=== PATIENT | female | born 1935 | race Caucasian/White ===

== ENCOUNTER → 2016-07-24 | Outpatient (REF) | payer MEDICARE | LOC: M LAB REF 13:59 | PROVIDERS: ATTEND Family Medicine | DX: R19.7 Diarrhea, unspecified (principal) ==

== ENCOUNTER → 2016-10-21 | Outpatient (CLI) | payer MEDICARE ==
--- NOTE | 2016-10-21 11:52 | REP ---
DIGITAL DIAGNOSTIC UNILATERAL LEFT BREAST MAMMOGRAPHY WITH CAD: HISTORY: Screening mammography September 18, 2016 was BIRADS category 4 for microcalcifications in the left breast. FINDINGS: Magnified focal spot compression CC, MLO and true MLO views of left breast confirm the presence of a grouping of microcalcifications and some coarse benign type calcifications in the tight grouping in the upper outer quadrant of the left breast. These are somewhat more numerous than on a 2013 prior study. There are some calcifications from this grouping which are visible in 2011 and 2010. This is a different grouping of calcifications than the one which was biopsied in the left breast in 2009. Heterogeneously dense breast parenchyma persist. IMPRESSION: There are coarse benign appearing calcifications in the upper outer quadrant left breast. Histologic sampling is not felt to be warranted. BIRADS category II benign left breast mammogram. Annual screening mammography recommended BI-RADS/ACR category 2 mammogram. Benign finding(s). Routine annual screening mammography (for women over age 40). This mammogram was interpreted with the aid of an FDA-approved computer-aided detection system. The patient states she/he had a clinical breast exam in May 2016. Patient letter M1. Signed by Tad Doll MD 10/21/2016 02:28 P
== END ==
LOC: M RAD 10:24
PROVIDERS: ATTEND Surgery
DX: N63 Unspecified lump in breast (principal)

== ENCOUNTER 2017-02-18 01:50 | Emergency (ER) | payer MEDICARE ==
[~2017-02-18] VITALS: Ht 157.5 cm; Wt 46.8 kg
[2017-02-18] MEDS ORDERED: BACL1TAB8 PO (02:05)
[2017-02-18] MEDS ORDERED: SERT-138 PO (02:05)
[2017-02-18] MEDS ORDERED: VITA100067 PO (02:05)
[2017-02-18] MEDS ORDERED: SYNT25TA PO (02:05)
[2017-02-18] MEDS ORDERED: ARIC1TAB2 PO (02:05)
[2017-02-18] MEDS ORDERED: PRED20TA PO (04:08)
[2017-02-18] MEDS ORDERED: ZITHTAB PO (04:08)
[2017-02-18 04:37] VITALS: BP 130/70
--- NOTE | 2017-02-18 08:15 | REP ---
Clinical: Cough . Comparison: 02/17/2010 . Technique: PA and lateral. Findings: The mediastinum and cardiac silhouette are normal. The lung biggs are clear and without acute consolidation, effusion, or pneumothorax. The skeletal structures are intact and normal. Impression: 1. No acute cardiopulmonary process. Signed by Jean Schwartz MD 02/18/2017 08:06 A
== END 2017-02-18 04:40 | disposition home or self-care (01) ==
LOC: M ED 01:50
DX: J41.0 Simple chronic bronchitis (principal); F03.90 Unspecified dementia, unspecified severity, without behavioral disturbance, psychotic disturbance, mood disturbance, and anxiety; Z79.899 Other long term (current) drug therapy

== ENCOUNTER → 2017-06-21 | Outpatient (CLI) | payer MEDICARE | LOC: M WUC 16:29 | DX: S62.662A Nondisplaced fracture of distal phalanx of right middle finger, initial encounter for closed fracture (principal); M19.041 Primary osteoarthritis, right hand; X58.XXXA Exposure to other specified factors, initial encounter; Y93.9 Activity, unspecified | CPT/HCPCS: 73140 ==

== ENCOUNTER 2017-10-26 09:59 | Inpatient (IN) | payer MEDICARE ==
[2017-10-26] MEDS: ENOXAPARIN 40 MG/0.4 ML SYRINGE (J1650) SC (09:00)
[2017-10-26 10:26] LABS: BEDSIDE GLUCOSE 92 MG/DL (83-110)
[2017-10-26 10:53] LABS: BASO % 0.7 % (0.0-1.0); EOS # 0.1 10^3/uL (0.0-0.50); EOS % 2.5 % (0.0-3.0); HEMATOCRIT 33.9 % (36.0-47.0); HEMOGLOBIN 11.2 g/dl (12.0-15.5); IMMATURE GRANULOCYTE % 0.2 % (0-3.0); LYMPH # 1.4 10^3/uL (1.5-4.5); LYMPH % 24.7 % (24.0-44.0); MEAN CORPUSCULAR HEMOGLOBIN 32.2 pg (27.0-33.0); MEAN CORPUSCULAR VOLUME 97.4 fl (80.0-96.0); MONO # 0.5 10^3/uL (0.0-0.8); MONO % 8.7 % (0.0-5.0); NEUTROPHILS # 3.5 10^3/uL (1.8-7.7); NEUTROPHILS % 63.2 % (36.0-66.0); PLATELET COUNT, AUTOMATED 205 10^3/uL (150-450); RED BLOOD COUNT 3.48 10^6/uL (4.00-5.40); RED CELL DISTRIBUTION WIDTH 13.2 % (11.5-14.5); WHITE BLOOD COUNT 5.5 10^3/uL (4.0-10.0)
[2017-10-26 11:08] LABS: INR 1.05; PROTHROMBIN TIME 13.9 SECONDS (12.1-14.4)
[2017-10-26 11:20] LABS: CPK CREATINE PHOSPHOKINASE 67 U/L (26-192); TROPONIN I < 0.02 NG/ML (< 0.10)
[2017-10-26 11:21] LABS: CK-MB VALUE MASS < 1.0 NG/ML (<3.6); MB/CK RELATIVE INDEX 1.49 (< OR =4)
[2017-10-26 11:26] LABS: ANION GAP 6 MEQ/L (8-16); BLOOD UREA NITROGEN 18 MG/DL (7-18); CALCIUM LEVEL 8.2 MG/DL (8.8-10.2); CARBON DIOXIDE LEVEL 27 MEQ/L (21-32); CHLORIDE LEVEL 112 MEQ/L (98-107); GLOMERULAR FILTRATION RATE > 60.0 (>32); GLUCOSE, FASTING 96 MG/DL (70-100); MAGNESIUM LEVEL 2.2 MG/DL (1.8-2.4); POTASSIUM SERUM 3.9 MEQ/L (3.5-5.1); SODIUM LEVEL 145 MEQ/L (136-145)
[2017-10-26] MEDS ORDERED: ONDANSETRON 4MG/2ML VIAL (J2405) IV (12:45)
[2017-10-26] MEDS ORDERED: ACETAMINOPHEN TAB 650MG DOSE (2X325MG) PO (12:45)
[2017-10-26 13:14] LABS: T UPTAKE 36 % (30-39); THYROXINE (T4) 5.6 UG/DL (4.5-12.0)
[2017-10-26 16:31] LABS: CK-MB VALUE MASS 1.2 NG/ML (<3.6); CPK CREATINE PHOSPHOKINASE 74 U/L (26-192); MB/CK RELATIVE INDEX 1.62 (< OR =4); TROPONIN I < 0.02 NG/ML (< 0.10)
[2017-10-26] MEDS: QUEtiapine FUMARATE 50 MG TAB PO ×2 (20:10→22:44)
[2017-10-26] MEDS: DOCUSATE SODIUM 100 MG CAP PO (20:11)
[2017-10-27 05:33] LABS: HEMATOCRIT 35.4 % (36.0-47.0); HEMOGLOBIN 11.8 g/dl (12.0-15.5); MEAN CORPUSCULAR HEMOGLOBIN 32.1 pg (27.0-33.0); MEAN CORPUSCULAR HGB CONC 33.3 g/dl (32.0-36.5); MEAN CORPUSCULAR VOLUME 96.2 fl (80.0-96.0); PLATELET COUNT, AUTOMATED 240 10^3/uL (150-450); RED BLOOD COUNT 3.68 10^6/uL (4.00-5.40); RED CELL DISTRIBUTION WIDTH 13.1 % (11.5-14.5); WHITE BLOOD COUNT 7.2 10^3/uL (4.0-10.0)
[2017-10-27] MEDS: LEVOTHYROXINE 25MCG TABLET (0.025MG) PO (05:39)
[2017-10-27 05:48] LABS: ANION GAP 6 MEQ/L (8-16); BLOOD UREA NITROGEN 14 MG/DL (7-18); CALCIUM LEVEL 8.5 MG/DL (8.8-10.2); CARBON DIOXIDE LEVEL 30 MEQ/L (21-32); CHLORIDE LEVEL 108 MEQ/L (98-107); CREATININE FOR GFR 0.73 MG/DL (0.55-1.30); GLOMERULAR FILTRATION RATE > 60.0 (>32); GLUCOSE, FASTING 89 MG/DL (70-100); MAGNESIUM LEVEL 2.2 MG/DL (1.8-2.4); POTASSIUM SERUM 3.5 MEQ/L (3.5-5.1); SODIUM LEVEL 144 MEQ/L (136-145)
[2017-10-27] MEDS: SERTRALINE 100 MG TAB PO (08:17)
[2017-10-27] MEDS: MULTIVITAMINS/MINERALS THERAP 1 TAB PO (08:17)
[2017-10-27] MEDS: DONEPEZIL 5 MG TAB PO (08:17)
[2017-10-27] MEDS: DOCUSATE SODIUM 100 MG CAP PO ×2 (08:18→20:36)
[2017-10-27] MEDS: VITAMIN D 1,000 INTERNATIONAL UNITS TABLET PO (08:18)
[2017-10-27] MEDS: ASPIRIN 81 MG ENTERIC TAB PO (08:18)
[2017-10-27] MEDS: ENOXAPARIN 40 MG/0.4 ML SYRINGE (J1650) SC (08:18)
[2017-10-27] MEDS: QUEtiapine FUMARATE 50 MG TAB PO ×2 (20:36→22:32)
[2017-10-28] MEDS: LEVOTHYROXINE 25MCG TABLET (0.025MG) PO (06:02)
[2017-10-28 06:29] LABS: HEMATOCRIT 35.8 % (36.0-47.0); HEMOGLOBIN 11.8 g/dl (12.0-15.5); MEAN CORPUSCULAR HEMOGLOBIN 32.1 pg (27.0-33.0); MEAN CORPUSCULAR VOLUME 97.3 fl (80.0-96.0); PLATELET COUNT, AUTOMATED 212 10^3/uL (150-450); RED BLOOD COUNT 3.68 10^6/uL (4.00-5.40); RED CELL DISTRIBUTION WIDTH 13.2 % (11.5-14.5); WHITE BLOOD COUNT 5.7 10^3/uL (4.0-10.0)
[2017-10-28 06:44] LABS: ANION GAP 5 MEQ/L (8-16); BLOOD UREA NITROGEN 12 MG/DL (7-18); CALCIUM LEVEL 8.6 MG/DL (8.8-10.2); CARBON DIOXIDE LEVEL 29 MEQ/L (21-32); CHLORIDE LEVEL 109 MEQ/L (98-107); CREATININE FOR GFR 0.79 MG/DL (0.55-1.30); GLOMERULAR FILTRATION RATE > 60.0 (>32); GLUCOSE, FASTING 87 MG/DL (70-100); MAGNESIUM LEVEL 2.3 MG/DL (1.8-2.4); POTASSIUM SERUM 3.7 MEQ/L (3.5-5.1); SODIUM LEVEL 143 MEQ/L (136-145)
[2017-10-28] MEDS: SERTRALINE 100 MG TAB PO (08:17)
[2017-10-28] MEDS: DONEPEZIL 5 MG TAB PO (08:17)
[2017-10-28] MEDS: ASPIRIN 81 MG ENTERIC TAB PO (08:17)
[2017-10-28] MEDS: MULTIVITAMINS/MINERALS THERAP 1 TAB PO (08:17)
[2017-10-28] MEDS: DOCUSATE SODIUM 100 MG CAP PO (08:17)
[2017-10-28] MEDS: ENOXAPARIN 30 MG/0.3 ML SYR (J1650) SC (08:17)
[2017-10-28] MEDS: VITAMIN D 1,000 INTERNATIONAL UNITS TABLET PO (08:17)
== END 2017-10-28 11:12 | disposition home or self-care (01) | DRG 312 ==
LOC: M MSPAV 10-27 13:43 → M ED 09:59 → M ED INP 12:39 → M ICU 14:50
PROVIDERS: Hospitalist
DX: R55 Syncope and collapse (principal); F03.90 Unspecified dementia, unspecified severity, without behavioral disturbance, psychotic disturbance, mood disturbance, and anxiety; E03.9 Hypothyroidism, unspecified; Z90.49 Acquired absence of other specified parts of digestive tract; Z79.82 Long term (current) use of aspirin; Z79.899 Other long term (current) drug therapy; F32.9 Major depressive disorder, single episode, unspecified; F41.9 Anxiety disorder, unspecified

== ENCOUNTER → 2018-05-05 | Outpatient (CLI) | payer MEDICARE ==
[~2018-05-05] MED LIST: ARIC1TAB2 PO; ASPI1TAB PO; BACL1TAB8 PO; PRED20TA PO; QUET5TAB PO; SERT-138 PO; SYNT25TA PO; VITA100067 PO; VITMTA PO; ZITHTAB PO
--- NOTE | 2018-05-05 12:24 | REP ---
Clinical: Pain. Technique: Single AP view of the pelvis. Findings: Generalized age-related changes are appreciated without evidence for overt osteoarthritic disease. Hip joints are symmetric and within normal limits. Proximal femurs demonstrate normal contour. No acute fracture or dislocation. Surrounding soft tissues are normal. Impression: Generalized age-related changes. Electronically Signed by Jean Schwartz MD 05/05/2018 12:16 P
--- NOTE | 2018-05-05 12:25 | REP ---
Clinical: Right hip pain. Technique: Neutral and frog lateral views of the right hip. Findings: Mild age-related changes are appreciated. No acute fracture dislocation. Proximal femur demonstrates normal contour. Surrounding soft tissues are unremarkable. Impression: Mild age-related changes. No acute fracture or dislocation. Electronically Signed by Jean Schwartz MD 05/05/2018 12:17 P
== END ==
LOC: M WUC 11:57
PROVIDERS: ATTEND Physician Assistant
DX: M25.551 Pain in right hip (principal)

== ENCOUNTER → 2018-06-08 | Outpatient (CLI) | payer MEDICARE ==
--- NOTE | 2018-06-09 01:58 | REP ---
Clinical: Shortness of breath . Comparison: 02/18/2017 . Technique: PA and lateral. Findings: The mediastinum and cardiac silhouette are normal. The lung biggs are clear and without acute consolidation, effusion, or pneumothorax. The skeletal structures are intact and normal. Impression: 1. No acute cardiopulmonary process. Electronically Signed by Jean Schwartz MD 06/09/2018 01:49 A
== END ==
LOC: M WUC 12:51
PROVIDERS: ATTEND Family Medicine
DX: R06.02 Shortness of breath (principal)

== ENCOUNTER → 2018-06-20 | Outpatient (REF) | payer MEDICARE | LOC: M LAB REF 17:14 | PROVIDERS: ATTEND Physician Assistant | DX: N39.0 Urinary tract infection, site not specified (principal) ==

== ENCOUNTER → 2018-07-30 | Outpatient (CLI) | payer MEDICARE ==
[~2018-07-30] MED LIST changes: -ASPI1TAB PO; +ASPI81TA26 PO
--- NOTE | 2018-07-30 12:25 | REP ---
Right tibia-fibula two views History: Pain There is no acute fracture or dislocation. The joint spaces are normal in appearance. Impression there is no acute fracture or dislocation. Electronically Signed by Chris De Leon MD 07/30/2018 12:17 P
== END ==
LOC: M WUC 12:01
PROVIDERS: ATTEND Physician Assistant
DX: S80.11XA Contusion of right lower leg, initial encounter (principal); W18.30XA Fall on same level, unspecified, initial encounter; Y92.009 Unspecified place in unspecified non-institutional (private) residence as the place of occurrence of the external cause

== ENCOUNTER → 2018-09-29 | Outpatient (REF) | payer MEDICARE ==
[~2018-09-29] MED LIST changes: +ACET1TAB55 PO; +ASPI81CH33 PO; +ATIV1TAB7 PO; +BISA10SU27 PR; +CVS5CHW2 PO; +ENEMCAP PR; +ENEMENE PR; +ENSU1LIQ36 PO; +HYOS125TA PO; +LASI20TA3 PO; +LEVA1TAB2 PO; +LEVO75TA4 PO; +LORA0.5T5 PO; +MELA5TAB29 SL; +MELATAB3 PO; +MILKSUS3 PO; +MOBI10CR TOP; +MOM30SS PO; +MORP20SO3 PO; +Morphine Sulfate Oral Conc. SL; +QUET1TAB7 PO; +QUET1TAB8 PO; +SCOP1PAT2 TOP; +SENN1TAB41 PO; +SERT-141 PO; +SERT25TA21 PO
[2018-09-29 08:18] LABS: HEMATOCRIT 33.9 % (36.0-47.0); HEMOGLOBIN 11.3 g/dl (12.0-15.5); MEAN CORPUSCULAR HEMOGLOBIN 32.9 pg (27.0-33.0); MEAN CORPUSCULAR HGB CONC 33.3 g/dl (32.0-36.5); MEAN CORPUSCULAR VOLUME 98.8 fl (80.0-96.0); PLATELET COUNT, AUTOMATED 204 10^3/uL (150-450); RED BLOOD COUNT 3.43 10^6/uL (4.00-5.40); WHITE BLOOD COUNT 5.3 10^3/uL (4.0-10.0)
[2018-09-29 09:02] LABS: ALBUMIN 3.1 GM/DL (3.2-5.2); ALT/SGPT 10 U/L (12-78); BILIRUBIN,TOTAL 0.3 MG/DL (0.2-1.0); BLOOD UREA NITROGEN 21 MG/DL (7-18); CALCIUM LEVEL 8.4 MG/DL (8.8-10.2); CARBON DIOXIDE LEVEL 30 MEQ/L (21-32); CHLORIDE LEVEL 107 MEQ/L (98-107); CREATININE FOR GFR 0.81 MG/DL (0.55-1.30); GLOMERULAR FILTRATION RATE > 60.0 (>32); GLUCOSE, FASTING 76 MG/DL (70-100); MAGNESIUM LEVEL 2.6 MG/DL (1.8-2.4); SODIUM LEVEL 142 MEQ/L (136-145); TOTAL PROTEIN 5.9 GM/DL (6.4-8.2)
== END ==
LOC: SKLAB6 07:00
PROVIDERS: ATTEND Internal Medicine
DX: E03.9 Hypothyroidism, unspecified (principal); R25.2 Cramp and spasm

== ENCOUNTER → 2018-10-14 | Outpatient (CLI) | payer MEDICARE ==
[~2018-10-14] MED LIST changes: -ATIV1TAB7 PO; -ENSU1LIQ36 PO; -HYOS125TA PO; -LEVO75TA4 PO; -LORA0.5T5 PO; -MELATAB3 PO; -MOBI10CR TOP; -MORP20SO3 PO; -Morphine Sulfate Oral Conc. SL; -QUET1TAB8 PO; -SCOP1PAT2 TOP; -SENN1TAB41 PO; -SERT-141 PO; -SERT25TA21 PO
--- NOTE | 2018-10-14 12:08 | REP ---
Duplex extremity venous ultrasound: Right lower extremity. History: Swelling of the right leg. Question DVT. Findings: The deep veins are anechoic and fully compressible from the groin to the popliteal fossa in the right lower extremity. Color flow imaging is homogeneous. Spectral Doppler interrogation demonstrates intact respiratory variation in flow and normal manual augmentation of flow. There is no evidence of deep vein thrombosis. Impression: Negative right lower extremity duplex venous ultrasound. No evidence of deep vein thrombosis. Electronically Signed by Tad Doll MD 10/14/2018 11:59 A
== END ==
LOC: M RAD 10:48
PROVIDERS: ATTEND Nurse Practitioner Family
DX: M79.89 Other specified soft tissue disorders (principal)

== ENCOUNTER 2018-10-16 06:40 | Inpatient (IN) | payer MEDICARE ==
[~2018-10-16 06:40] MED LIST changes: -ACET1TAB55 PO; -ASPI81CH33 PO; -BISA10SU27 PR; -CVS5CHW2 PO; -ENEMCAP PR; -ENEMENE PR; -LASI20TA3 PO; -LEVA1TAB2 PO; -MELA5TAB29 SL; -MILKSUS3 PO; -MOM30SS PO; -QUET1TAB7 PO
[2018-10-16 07:22] LABS: BASO % 0.6 % (0.0-1.0); EOS # 0.2 10^3/uL (0.0-0.50); EOS % 3.4 % (0.0-3.0); HEMATOCRIT 37.8 % (36.0-47.0); HEMOGLOBIN 12.2 g/dl (12.0-15.5); LYMPH # 2.5 10^3/uL (1.5-4.5); LYMPH % 40.1 % (24.0-44.0); MEAN CORPUSCULAR HEMOGLOBIN 31.3 pg (27.0-33.0); MEAN CORPUSCULAR HGB CONC 32.3 g/dl (32.0-36.5); MEAN CORPUSCULAR VOLUME 96.9 fl (80.0-96.0); MONO # 0.8 10^3/uL (0.0-0.8); MONO % 13.3 % (0.0-5.0); NEUTROPHILS # 2.6 10^3/uL (1.8-7.7); NEUTROPHILS % 42.3 % (36.0-66.0); PLATELET COUNT, AUTOMATED 255 10^3/uL (150-450); WHITE BLOOD COUNT 6.2 10^3/uL (4.0-10.0)
[2018-10-16 07:35] LABS: ALBUMIN 3.5 GM/DL (3.2-5.2); ALT/SGPT 11 U/L (12-78); BILIRUBIN,DIRECT 0.1 MG/DL (0.0-0.2); BILIRUBIN,TOTAL 0.4 MG/DL (0.2-1.0); BLOOD UREA NITROGEN 16 MG/DL (7-18); CALCIUM LEVEL 8.8 MG/DL (8.8-10.2); CARBON DIOXIDE LEVEL 28 MEQ/L (21-32); CHLORIDE LEVEL 107 MEQ/L (98-107); CK-MB VALUE MASS 1.4 NG/ML (<3.6); CPK CREATINE PHOSPHOKINASE 92 U/L (26-192); GLOMERULAR FILTRATION RATE > 60.0 (>32); GLUCOSE, FASTING 86 MG/DL (70-100); MB/CK RELATIVE INDEX 1.52 (< OR =4); SODIUM LEVEL 143 MEQ/L (136-145); TOTAL PROTEIN 6.7 GM/DL (6.4-8.2); TROPONIN I < 0.02 NG/ML (< 0.10)
--- NOTE | 2018-10-16 08:19 | REP ---
Chest x-ray: Two views. History: Altered mental status. Comparison study: June 08, 2018. Findings: The lungs are slightly hyperinflated but clear. Pleural angles are sharp. Cardiomediastinal silhouette is unremarkable. Pulmonary vasculature is not increased. No significant bony abnormality is seen. Impression: No active disease. Electronically Signed by Tad Doll MD 10/16/2018 08:09 A
--- NOTE | 2018-10-16 08:26 | REPVR ---
EXAM: CT Head Without Contrast EXAM DATE/TIME: 10/16/2018 7:03 AM CLINICAL HISTORY: 83 years old, female; Altered mental status/memory loss TECHNIQUE: Imaging protocol: Axial computed tomography images of the head without contrast. Radiation optimization: All CT scans at this facility use at least one of these dose optimization techniques: automated exposure control; mA and/or kV adjustment per patient size (includes targeted exams where dose is matched to clinical indication); or iterative reconstruction. COMPARISON: CT Head without contrast 10/26/2017 12:00 PM FINDINGS: Brain: Atrophic changes. No CT evidence of acute cortical infarct. Hypodensity within the white matter most suggestive of chronic small vessel ischemic/gliotic change. No mass effect. No edema. No parenchymal hemorrhage. No subarachnoid hemorrhage. 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 This measures up to 10 mm in depth on the right and 8 mm of depth on the left. The cortical sulci are not as wide as previously demonstrated consistent with mild mass effect. Ventricles: The ventricular system is midline and normal in size for the degree of sulcal dilatation. No hydrocephalus. Bones/joints: No acute fracture. Sinuses: Visualized sinuses are unremarkable. No fluid levels. Mastoid air cells: Imaged portions of the mastoid air cells are aerated. Soft tissues: Unremarkable. IMPRESSION: Bilateral subdural hygromas new since previous study of 10/26/2017. This measures up to 10 mm in depth on the right at the high ventricular level and 8 mm in depth on the left at the high ventricular level. There is mild mass effect on the underlying cortical sulci however this is superimposed upon moderate atrophic changes. No midline shift. No evidence of acute hemorrhage. No CT evidence of acute cortical infarct. If there is clinical suspicion for a recent ischemic event or if otherwise clinically warranted, then MRI of the brain could be considered. Followup as clinically warranted. Electronically signed by: Jean Vidal On 10/16/2018 08:25:54 AM
[2018-10-16] MEDS: SERTRALINE 100 MG TAB PO SCH (09:00)
[2018-10-16] MEDS: QUEtiapine FUMARATE 25 MG TAB PO SCH ×2 (09:00→20:07)
[2018-10-16] MEDS: MULTIVITAMINS/MINERALS THERAP 1 TAB PO SCH (09:00)
--- NOTE | 2018-10-16 09:42 | HPEPDOC ---
[facility] Medical History & Physical Date of Admission Oct 16, 2018 History and Physical CHIEF COMPLAINT: syncope HISTORY OF PRESENT ILLNESS: 83 yo female sent to ED for syncopal episode while sitting in her chair this morning. At bedside patient has no medical complaints, but is a poor historian. is at bedside who notes multiple fall in the past few weeks. States her mentation is essentially at baseline. She denies chest pain, shortness of breath, abdominal pain, headaches, changes in vision. PAST MEDICAL HISTORY: #syncope #asthma #emphysema #hyperlipidemia #hypothyroidism #systemic sclerosis #osteoporosis ALLERGIES: Please see below. REVIEW OF SYSTEMS: Negative except as per HPI HOME MEDICATIONS: Please see below. PHYSICAL EXAMINATION: VITAL SIGNS: See below GENERAL APPEARANCE: NAD, lying comfortably in bed, elderly, frail HEENT: NC/AT, EOMI, PERRLA CARDIOVASCULAR: +S1S2, RRR LUNGS: CTA B/L ABDOMEN: soft, NT, +BS NEUROLOGICAL: no gross focal deficits PSYCHIATRIC: alert, awake, oriented to person only LABORATORY DATA: See below. MICROBIOLOGY: Please see below. ASSESSMENT: 83 yo female for multiple falls and syncope #syncope/falls - telemetry monitoring - check orthostatics - check UA/UCx/BCx - PT/OT #agitation - continue seroquel #UTI - ceftriaxone - UCx pending #asthma #emphysema #hyperlipidemia #hypothyroidism #systemic sclerosis #osteoporosis #DVT prophylaxis - mechanical Vital Signs Vital Signs Date Time Temp Pulse Resp B/P (MAP) Pulse Ox O2 Delivery O2 Flow Rate FiO2 10/16/18 09:01 156/69 (98) 10/16/18 08:55 68 10/16/18 07:07 97.0 10/16/18 06:41 16 98 Room Air Laboratory Data Labs 24H Laboratory Tests 2 10/16/18 06:53: Immature Granulocyte % (Auto) 0.3, White Blood Count 6.2, Red Blood Count 3.90L, Hemoglobin 12.2, Hematocrit 37.8, Mean Corpuscular Volume 96.9H, Mean Corpuscular Hemoglobin 31.3, Mean Corpuscular Hemoglobin Concent 32.3, Red Cell Distribution Width 14.1, Platelet Count 255, Neutrophils (%) (Auto) 42.3, Lymphocytes (%) (Auto) 40.1, Monocytes (%) (Auto) 13.3H, Eosinophils (%) (Auto) 3.4H, Basophils (%) (Auto) 0.6, Neutrophils # (Auto) 2.6, Lymphocytes # (Auto) 2.5, Monocytes # (Auto) 0.8, Eosinophils # (Auto) 0.2, Basophils # (Auto) 0.0, Nucleated Red Blood Cells % (auto) 0.0, Anion Gap 8, Glomerular Filtration Rate > 60.0, Calcium Level 8.8, Aspartate Amino Transf (AST/SGOT) 17, Alanine Aminotransferase (ALT/SGPT) 11L, Alkaline Phosphatase 70, Total Bilirubin 0.4, Direct Bilirubin 0.1, Total Creatine Kinase 92, Creatine Kinase MB 1.4, Creatine Kinase MB Relative Index 1.52, Troponin I < 0.02, Total Protein 6.7, Albumin 3. 5, Albumin/Globulin Ratio 1.09, Thyroid Stimulating Hormone (TSH) 4.030H CBC/BMP Laboratory Tests 10/16/18 06:53 Red Blood Count 3.90 L, Mean Corpuscular Volume 96.9 H, Mean Corpuscular Hemoglobin 31.3, Mean Corpuscular Hemoglobin Concent 32.3, Red Cell Distribution Width 14.1, Neutrophils (%) (Auto) 42.3, Lymphocytes (%) (Auto) 40.1, Monocytes (%) (Auto) 13.3 H, Eosinophils (%) (Auto) 3.4 H, Basophils (%) (Auto) 0.6, Neutrophils # (Auto) 2.6, Lymphocytes # (Auto) 2.5, Monocytes # (Auto) 0.8, Eosinophils # (Auto) 0.2, Basophils # (Auto) 0.0 Home Medications Scheduled Aspirin (Aspirin) 81 Mg Tab.chew, 81 MG PO DAILY Furosemide (Lasix) 20 Mg Tablet, 20 MG PO 3XW mon, wed, fri Levothyroxine Sodium (Synthroid) 25 Mcg Tab, 25 MCG PO DAILY Melatonin (Melatonin) 5 Mg Tab.subl, 5 MG SL QHS Multivitamins (Thera M Plus Tablet) 1 Tab Tab, 1 TAB PO DAILY Quetiapine Fumarate (Quetiapine Fumarate) 25 Mg Tablet, 75 MG PO BID Sertraline HCl (Sertraline HCl) 100 Mg Tab, 100 MG PO DAILY Scheduled PRN Acetaminophen (Acetaminophen) 325 Mg Tablet, 650 MG PO Q4H PRN for PAIN Bisacodyl (Bisacodyl) 10 Mg Supp.rect, 10 MG MO DAILY PRN for CONSTIPATION Milk Of Magnesia (Milk of Magnesia) 2,400 Mg/10 Ml Oral.susp, 10 ML PO DAILY PRN for CONSTIPATION Sodium Phosphate,[place]-Dibasic (Enema) 133 Ml Enema, 1 KERLINE MO DAILY PRN for CONSTIPATION Allergies Coded Allergies: No Known Allergies (Unverified , 10/16/18) A-FIB/CHADSVASC A-FIB History Current/History of A-Fib/PAF?: No Current PO Anticoag Therapy: No HOLLIE CHRISTINE MD Oct 16, 2018 09:42
[2018-10-16] MEDS ORDERED: CVS5CHW2 PO (10:11)
[2018-10-16] MEDS ORDERED: MELA5TAB29 SL (10:11)
[2018-10-16] MEDS ORDERED: QUET1TAB7 PO (10:19)
[2018-10-16] MEDS ORDERED: QUET5TAB PO (10:19)
[2018-10-16] MEDS ORDERED: ACET1TAB55 PO (10:25)
[2018-10-16] MEDS ORDERED: ENEMCAP PR (10:25)
[2018-10-16] MEDS ORDERED: BISA10SU27 PR (10:25)
[2018-10-16] MEDS ORDERED: MILKSUS3 PO (10:25)
[2018-10-16] MEDS ORDERED: LASI20TA3 PO (10:28)
[2018-10-16] MEDS ORDERED: ENEMENE PR ×2 (10:41→10:42)
[2018-10-16] MEDS ORDERED: ASPI81CH33 PO (10:41)
[2018-10-16] MEDS ORDERED: MOM30SS PO (10:41)
[2018-10-16] MEDS ORDERED: MOM 30ML SUSPENSION UDC PO PRN (11:30)
[2018-10-16] MEDS ORDERED: ACETAMINOPHEN TAB 650MG DOSE (2X325MG) PO PRN (11:30)
[2018-10-16] MEDS ORDERED: BISACODYL 10 MG SUPP PR PRN (11:30)
[2018-10-16] MEDS ORDERED: HALOPERIDOL 5 MG/ML VIAL (J1630) IV ONE (11:30)
[2018-10-16] MEDS ORDERED: cefTRIAXone SOD 1 GM in D5W MINI-BAG PLUS 50 ML IV SCH (13:00)
[2018-10-16 15:06] VITALS: BP 150/64
[2018-10-16 16:00] VITALS: BP 130/60
[2018-10-16] MEDS ORDERED: HALOPERIDOL 5 MG/ML VIAL (J1630) IV PRN (16:45)
[2018-10-16 20:00] VITALS: BP 126/61
[2018-10-17] VITALS: BP 132/61
[2018-10-17 00:03] VITALS: BP 138/82
[2018-10-17 00:06] VITALS: BP 128/63
[2018-10-17 04:00] VITALS: BP 126/67
[2018-10-17 05:58] LABS: HEMATOCRIT 34.2 % (36.0-47.0); HEMOGLOBIN 11.3 g/dl (12.0-15.5); MEAN CORPUSCULAR HEMOGLOBIN 31.7 pg (27.0-33.0); MEAN CORPUSCULAR VOLUME 96.1 fl (80.0-96.0); PLATELET COUNT, AUTOMATED 243 10^3/uL (150-450); RED BLOOD COUNT 3.56 10^6/uL (4.00-5.40); WHITE BLOOD COUNT 5.1 10^3/uL (4.0-10.0)
[2018-10-17] MEDS ORDERED: LEVOTHYROXINE 25MCG TABLET (0.025MG) PO SCH (06:00)
[2018-10-17 06:26] LABS: ALBUMIN 3.2 GM/DL (3.2-5.2); ALT/SGPT 12 U/L (12-78); BILIRUBIN,TOTAL 0.4 MG/DL (0.2-1.0); BLOOD UREA NITROGEN 15 MG/DL (7-18); CALCIUM LEVEL 8.9 MG/DL (8.8-10.2); CARBON DIOXIDE LEVEL 29 MEQ/L (21-32); CHLORIDE LEVEL 106 MEQ/L (98-107); CREATININE FOR GFR 0.78 MG/DL (0.55-1.30); GLOMERULAR FILTRATION RATE > 60.0 (>32); GLUCOSE, FASTING 90 MG/DL (70-100); SODIUM LEVEL 140 MEQ/L (136-145); TOTAL PROTEIN 6.6 GM/DL (6.4-8.2)
[2018-10-17 08:00] VITALS: BP 112/56
[2018-10-17] MEDS ORDERED: FUROSEMIDE 20 MG TAB PO SCH (09:00)
[2018-10-17] MEDS: QUEtiapine FUMARATE 25 MG TAB PO SCH (09:53)
[2018-10-17] MEDS: MULTIVITAMINS/MINERALS THERAP 1 TAB PO SCH (09:53)
[2018-10-17] MEDS: SERTRALINE 100 MG TAB PO SCH (09:54)
[2018-10-17] MEDS ORDERED: LEVA1TAB2 PO (10:10)
--- NOTE | 2018-10-17 14:26 | DS.PDOC ---
Discharge Summary General Date of Admission Oct 16, 2018 at 09:43 Date of Discharge 10/17/18 Discharge Summary PROCEDURES PERFORMED DURING STAY: None ADMITTING DIAGNOSES: 1.Syncope 2.Frequent Falls 3.Agitation,confusion,delirium,AMS 4.Complicated UTI DISCHARGE DIAGNOSES: 1. same COMPLICATIONS/CHIEF COMPLAINT: Syncope. HISTORY OF PRESENT ILLNESS: 83 yo female sent to ED for syncopal episode while sitting in her chair this morning. At bedside patient has no medical complaints, but is a poor historian. is at bedside who notes multiple fall in the past few weeks. States her mentation is essentially at baseline. She denies chest pain, shortness of breath, abdominal pain, headaches, changes in vision. HOSPITAL COURSE: Pt was admitted with above presentation, pt with baseline dementia with worsening mental status with agitation and delirium. Next morning upon admission pt found to be calm and pleasant at her baseline. Pt received IV ceftriaxone, IVF , cont home meds. Currently is medically optimized to return to NH with 7 days of levaquin. Urine culture is pending. Will notify PCP in case of any resistant organism. Pt was incidentally found to have subdural hygromas very unlikely this finding contributes to current clinical condition. There is no midline shift. No acute focal neurologic deficit. DISCHARGE MEDICATIONS: Please see below. ALLERGIES: Please see below. PHYSICAL EXAMINATION ON DISCHARGE: VITAL SIGNS: See below GENERAL APPEARANCE: NAD, lying comfortably in bed, elderly, frail HEENT: NC/AT, EOMI, PERRLA CARDIOVASCULAR: +S1S2, RRR LUNGS: CTA B/L ABDOMEN: soft, NT, +BS NEUROLOGICAL: no gross focal deficits PSYCHIATRIC: alert, awake, oriented to person only LABORATORY DATA: Please see below. IMAGING: IMPRESSION: Bilateral subdural hygromas new since previous study of 10/26/2017. This measures up to 10 mm in depth on the right at the high ventricular level and 8 mm in depth on the left at the high ventricular level. There is mild mass effect on the underlying cortical sulci however this is superimposed upon moderate atrophic changes. No midline shift. No evidence of acute hemorrhage. No CT evidence of acute cortical infarct. If there is clinical suspicion for a recent ischemic event or if otherwise clinically warranted, then MRI of the brain could be considered. Followup as clinically warranted. ACTIVITY: [As tolerated]. DIET: regular DISPOSITION: [facility]. DISCHARGE INSTRUCTIONS: 1. PCP in one week DISCHARGE CONDITION: [Stable]. TIME SPENT ON DISCHARGE: 20 Vital Signs Date Time Temp Pulse Resp B/P (MAP) Pulse Ox O2 Delivery O2 Flow Rate FiO2 10/17/18 08:00 97.8 81 18 112/56 (74) 98 10/17/18 04:00 98.2 72 18 126/67 (86) 97 10/17/18 00:06 112 128/63 (84) 10/17/18 00:03 108 138/82 (100) 10/17/18 00:00 98.1 85 18 132/61 (84) 96 10/17/18 00:00 85 132/61 (84) 10/16/18 20:00 98.1 80 18 126/61 (82) 99 10/16/18 16:00 97.7 76 18 130/60 (83) 99 10/16/18 15:06 97.8 87 18 150/64 (92) 95 10/16/18 14:56 98.1 103 18 133/77 (95) 99 Room Air Intake & Output 10/17/18 06:00 Intake Total 120 ml Output Total 0 ml Balance 120 ml Laboratory Tests 10/17/18 05:38: White Blood Count 5.1, Red Blood Count 3.56L, Hemoglobin 11.3L, Hematocrit 34.2L, Mean Corpuscular Volume 96.1H, Mean Corpuscular Hemoglobin 31.7, Mean Corpuscular Hemoglobin Concent 33.0, Red Cell Distribution Width 14.0, Platelet Count 243, Nucleated Red Blood Cells % (auto) 0.0, Blood Urea Nitrogen 15, Creatinine 0.78, Sodium Level 140, Potassium Level 4.0, Chloride Level 106, Carbon Dioxide Level 29, Calcium Level 8.9, Aspartate Amino Transf (AST/SGOT) 15, Alanine Aminotransferase (ALT/SGPT) 12, Alkaline Phosphatase 64, Total Bilirubin 0.4, Total Protein 6.6, Albumin 3.2, Anion Gap 5L, Glomerular Filtration Rate > 60.0, Fasting Glucose 90, Albumin/Globulin Ratio 0.94L minutes. Vital Signs/I&Os Vital Signs Date Time Temp Pulse Resp B/P (MAP) Pulse Ox O2 Delivery O2 Flow Rate FiO2 10/17/18 08:00 97.8 81 18 112/56 (74) 98 10/16/18 14:56 Room Air I&O- Last 24 Hours up to 6 AM 10/17/18 06:00 Intake Total 120 ml Output Total 0 ml Balance 120 ml Laboratory Data Labs 24H Laboratory Tests 2 10/17/18 05:38: Nucleated Red Blood Cells % (auto) 0.0, Anion Gap 5L, Glomerular Filtration Rate > 60.0, Blood Urea Nitrogen 15, Creatinine 0.78, Sodium Level 140, Potassium Level 4.0, Chloride Level 106, Carbon Dioxide Level 29, Calcium Level 8.9, Aspartate Amino Transf (AST/SGOT) 15, Alanine Aminotransferase (ALT/SGPT) 12, Alkaline Phosphatase 64, Total Bilirubin 0.4, Total Protein 6.6, Albumin 3.2, Albumin/Globulin Ratio 0.94L CBC/BMP Laboratory Tests 10/17/18 05:38 Red Blood Count 3.56 L, Mean Corpuscular Volume 96.1 H, Mean Corpuscular Hemoglobin 31.7, Mean Corpuscular Hemoglobin Concent 33.0, Red Cell Distribution Width 14.0, Calcium Level 8.9, Aspartate Amino Transf (AST/SGOT) 15, Alanine Aminotransferase (ALT/SGPT) 12, Alkaline Phosphatase 64, Total Bilirubin 0.4, Total Protein 6.6, Albumin 3.2 Microbiology Microbiology 10/16/18 Blood Culture - Preliminary, Resulted No growth after 24 hours . All specim... 10/16/18 Blood Culture - Preliminary, Resulted No growth after 24 hours . All specim... 10/16/18 Urine Culture, Received Pending Discharge Medications Scheduled Aspirin (Aspirin) 81 Mg Tab.chew, 81 MG PO DAILY, (Reported) Furosemide (Lasix) 20 Mg Tablet, 20 MG PO 3XW, (Reported) mon, wed, fri Levofloxacin (Levaquin) 500 Mg Tablet, 1 TAB PO DAILY for UTI Levothyroxine Sodium (Synthroid) 25 Mcg Tab, 25 MCG PO DAILY, (Reported) Melatonin (Melatonin) 5 Mg Tab.subl, 5 MG SL QHS, (Reported) Multivitamins (Thera M Plus Tablet) 1 Tab Tab, 1 TAB PO DAILY, (Reported) Quetiapine Fumarate (Quetiapine Fumarate) 25 Mg Tablet, 75 MG PO BID, (Reported) Sertraline HCl (Sertraline HCl) 100 Mg Tab, 100 MG PO DAILY, (Reported) Scheduled PRN Acetaminophen (Acetaminophen) 325 Mg Tablet, 650 MG PO Q4H PRN for PAIN, (Reported) Bisacodyl (Bisacodyl) 10 Mg Supp.rect, 10 MG DC DAILY PRN for CONSTIPATION, (Reported) Milk Of Magnesia (Milk of Magnesia) 2,400 Mg/10 Ml Oral.susp, 10 ML PO DAILY PRN for CONSTIPATION, (Reported) Sodium Phosphate,[place]-Dibasic (Enema) 133 Ml Enema, 1 KERLINE DC DAILY PRN for CONSTIPATION, (Reported) Allergies Coded Allergies: No Known Allergies (Unverified , 10/16/18) ELLIE RUEDA MD Oct 17, 2018 14:25
--- NOTE | 2018-10-17 17:09 | ECGEPIP ---
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
--- NOTE | 2018-10-17 20:30 | ECGEPIP ---
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
== END 2018-10-17 12:56 | DRG 312 ==
LOC: M ED 06:40 → M ED INP 09:43 → M PCU 15:07
PROVIDERS: ADMIT Internal Medicine; ATTEND Hospitalist
DX: R55 Syncope and collapse (principal); N39.0 Urinary tract infection, site not specified; F03.91 Unspecified dementia, unspecified severity, with behavioral disturbance; M34.9 Systemic sclerosis, unspecified; J43.9 Emphysema, unspecified; R29.6 Repeated falls; Z79.82 Long term (current) use of aspirin; E78.5 Hyperlipidemia, unspecified; E03.9 Hypothyroidism, unspecified; M81.0 Age-related osteoporosis without current pathological fracture

== ENCOUNTER → 2018-10-20 | Outpatient (REF) | payer MEDICARE ==
[~2018-10-20] MED LIST changes: +ACET1TAB55 PO; +ASPI81CH33 PO; +BISA10SU27 PR; +CVS5CHW2 PO; +ENEMCAP PR; +ENEMENE PR; +LASI20TA3 PO; +LEVA1TAB2 PO; +MELA5TAB29 SL; +MILKSUS3 PO; +MOM30SS PO; +QUET1TAB7 PO
--- NOTE | 2018-10-21 08:04 | REP ---
AP pelvis: No pelvic fractures are identified. The sacroiliac articulations and hip articulations are unremarkable. The visualized bowel gas pattern is unremarkable. Impression: No pelvic fracture. Right hip two views : There is no fracture or dislocation. Mineralization and joint spaces are normal. There are no calcifications or foreign bodies. Impression: Negative right hip . Left hip two views : There is no fracture or dislocation. Mineralization and joint spaces are normal. There are no calcifications or foreign bodies. Impression: Negative left hip . Electronically Signed by Varun Harper MD 10/21/2018 07:55 A
== END ==
LOC: M RAD 20:43
PROVIDERS: ATTEND Internal Medicine
DX: M25.551 Pain in right hip (principal); M25.552 Pain in left hip; Z91.81 History of falling

== ENCOUNTER → 2018-10-21 | Outpatient (REF) | payer MEDICARE ==
[~2018-10-21] MED LIST changes: +ATIV1TAB7 PO; +ENSU1LIQ36 PO; +HYOS125TA PO; +LEVO75TA4 PO; +LORA0.5T5 PO; +MELATAB3 PO; +MOBI10CR TOP; +MORP20SO3 PO; +Morphine Sulfate Oral Conc. SL; +QUET1TAB8 PO; +SCOP1PAT2 TOP; +SENN1TAB41 PO; +SERT-141 PO; +SERT25TA21 PO
[2018-10-21 07:56] LABS: BLOOD UREA NITROGEN 15 MG/DL (7-18); CALCIUM LEVEL 8.8 MG/DL (8.8-10.2); CARBON DIOXIDE LEVEL 29 MEQ/L (21-32); CHLORIDE LEVEL 106 MEQ/L (98-107); CREATININE FOR GFR 0.76 MG/DL (0.55-1.30); GLOMERULAR FILTRATION RATE > 60.0 (>32); GLUCOSE, FASTING 105 MG/DL (70-100); POTASSIUM SERUM 3.9 MEQ/L (3.5-5.1); SODIUM LEVEL 140 MEQ/L (136-145)
== END ==
LOC: SKLAB6 07:00
PROVIDERS: ATTEND Internal Medicine
DX: R60.0 Localized edema (principal)

== ENCOUNTER → 2018-11-10 | Outpatient (REF) | payer MEDICARE ==
[~2018-11-10] MED LIST changes: -ATIV1TAB7 PO; -ENSU1LIQ36 PO; -HYOS125TA PO; -LEVO75TA4 PO; -LORA0.5T5 PO; -MELATAB3 PO; -MOBI10CR TOP; -MORP20SO3 PO; -Morphine Sulfate Oral Conc. SL; -QUET1TAB8 PO; -SCOP1PAT2 TOP; -SENN1TAB41 PO; -SERT-141 PO; -SERT25TA21 PO
--- NOTE | 2018-11-10 18:48 | REP ---
CHEST: Single view. There is no evidence of acute infiltrate. No pleural effusion is seen. The heart is normal in size. The mediastinal silhouette is unremarkable. The visualized osseous structures are intact. There is mild calcification and tortuosity of the thoracic aorta. IMPRESSION: No acute pulmonary disease. Electronically Signed by Varun Youngblood MD 11/11/2018 09:53 A
== END ==
LOC: SKLAB6 13:35
PROVIDERS: ATTEND Internal Medicine
DX: R09.89 Other specified symptoms and signs involving the circulatory and respiratory systems (principal)

== ENCOUNTER → 2018-11-28 | Outpatient (REF) | payer MEDICARE ==
[~2018-11-28] MED LIST changes: +ATIV1TAB7 PO; +ENSU1LIQ36 PO; +HYOS125TA PO; +LEVO75TA4 PO; +LORA0.5T5 PO; +MELATAB3 PO; +MOBI10CR TOP; +MORP20SO3 PO; +Morphine Sulfate Oral Conc. SL; +QUET1TAB8 PO; +SCOP1PAT2 TOP; +SENN1TAB41 PO; +SERT-141 PO; +SERT25TA21 PO
== END ==
LOC: SKLAB6 07:00
PROVIDERS: ATTEND Internal Medicine
DX: F03.90 Unspecified dementia, unspecified severity, without behavioral disturbance, psychotic disturbance, mood disturbance, and anxiety (principal); E03.9 Hypothyroidism, unspecified

== ENCOUNTER → 2018-12-12 | Outpatient (REF) | payer MEDICARE ==
[2018-12-12 12:40] LABS: BLOOD UREA NITROGEN 27 MG/DL (7-18); CALCIUM LEVEL 9.3 MG/DL (8.8-10.2); CARBON DIOXIDE LEVEL 31 MEQ/L (21-32); CHLORIDE LEVEL 105 MEQ/L (98-107); CREATININE FOR GFR 0.86 MG/DL (0.55-1.30); GLOMERULAR FILTRATION RATE > 60.0 (>32); GLUCOSE, FASTING 89 MG/DL (70-100); POTASSIUM SERUM 4.3 MEQ/L (3.5-5.1); SODIUM LEVEL 142 MEQ/L (136-145)
== END ==
LOC: SKLAB6 11:04
PROVIDERS: ATTEND Internal Medicine
DX: F03.91 Unspecified dementia, unspecified severity, with behavioral disturbance (principal); E03.9 Hypothyroidism, unspecified; W19.XXXA Unspecified fall, initial encounter; Y92.89 Other specified places as the place of occurrence of the external cause; Y93.89 Activity, other specified; Y99.8 Other external cause status

== ENCOUNTER → 2018-12-15 | Outpatient (REF) | payer MEDICARE ==
[2018-12-15 08:42] LABS: HEMATOCRIT 38.2 % (36.0-47.0); HEMOGLOBIN 12.3 g/dl (12.0-15.5); MEAN CORPUSCULAR HEMOGLOBIN 32.7 pg (27.0-33.0); MEAN CORPUSCULAR HGB CONC 32.2 g/dl (32.0-36.5); MEAN CORPUSCULAR VOLUME 101.6 fl (80.0-96.0); PLATELET COUNT, AUTOMATED 312 10^3/uL (150-450); RED BLOOD COUNT 3.76 10^6/uL (4.00-5.40); WHITE BLOOD COUNT 7.8 10^3/uL (4.0-10.0)
[2018-12-15 09:07] LABS: ALBUMIN 3.7 GM/DL (3.2-5.2); ALT/SGPT 12 U/L (12-78); BILIRUBIN,TOTAL 0.5 MG/DL (0.2-1.0); BLOOD UREA NITROGEN 22 MG/DL (7-18); CALCIUM LEVEL 9.5 MG/DL (8.8-10.2); CARBON DIOXIDE LEVEL 29 MEQ/L (21-32); CHLORIDE LEVEL 107 MEQ/L (98-107); CREATININE FOR GFR 0.86 MG/DL (0.55-1.30); GLOMERULAR FILTRATION RATE > 60.0 (>32); GLUCOSE, FASTING 127 MG/DL (70-100); MAGNESIUM LEVEL 2.3 MG/DL (1.8-2.4); POTASSIUM SERUM 4.2 MEQ/L (3.5-5.1); SODIUM LEVEL 143 MEQ/L (136-145); TOTAL PROTEIN 6.9 GM/DL (6.4-8.2)
== END ==
LOC: SKLAB6 07:00
PROVIDERS: ATTEND Internal Medicine
DX: E03.9 Hypothyroidism, unspecified (principal); F03.91 Unspecified dementia, unspecified severity, with behavioral disturbance

== ENCOUNTER → 2018-12-15 | Outpatient (REF) | payer MEDICARE ==
--- NOTE | 2018-12-15 16:07 | REP ---
Thoracic spine series: Two views. History: Pain after a fall. Findings: Thoracic vertebral body heights are preserved. Alignment is normal. Discogenic spurring is noted in the mid thoracic segments anteriorly. Pedicles and posterior elements are intact. No paravertebral soft-tissue mass or hematoma is seen. Impression: No fracture seen. Electronically Signed by Tad Doll MD 12/15/2018 04:13 P
--- NOTE | 2018-12-15 16:31 | REP ---
Lumbosacral spine, five views Indication: Pain after fall. Comparison: None Findings: There are multilevel degenerative changes. No lumbar vertebral compression deformity is identified. There is grade 1 anterolisthesis of L4 on L5 and L5 on S1. There is bilateral facet arthropathy at L4-L5 and L5 S1, left greater than right, with suspected bilateral spondylolysis. Evaluation of the imaged pelvis is obscured secondary to overlying bowel gas. The sacroiliac joints and pubic symphysis appear intact. There is contour deformity of the sacral coccygeal spine which is age-indeterminate. There is dense atherosclerotic calcification of the abdominal aorta. There are surgical clips within the right upper quadrant, likely representing prior cholecystectomy. There is ill-defined small calcific density which projects over the lower pole left kidney. There are multiple pelvic phleboliths. Bowel gas pattern is within normal limits. Impression: No acute compression deformity of the lumbar spine. Age-indeterminate contour deformity of the sacral coccygeal spine. 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 Electronically Signed by Isaiah Guzman MD 12/15/2018 04:23 P
== END ==
LOC: SKLAB6 14:00
PROVIDERS: ATTEND Internal Medicine
DX: M43.16 Spondylolisthesis, lumbar region (principal); M54.5 Low back pain; M54.6 Pain in thoracic spine; W19.XXXA Unspecified fall, initial encounter; Y92.89 Other specified places as the place of occurrence of the external cause; Y93.89 Activity, other specified; Y99.8 Other external cause status

== ENCOUNTER → 2019-01-12 | Outpatient (REF) | payer MEDICARE | LOC: SKLAB6 07:00 | PROVIDERS: ATTEND Internal Medicine | DX: F03.91 Unspecified dementia, unspecified severity, with behavioral disturbance (principal); E03.9 Hypothyroidism, unspecified ==

== ENCOUNTER 2019-02-28 11:59 | Inpatient (IN) | payer MEDICARE ==
[~2019-02-28] VITALS: Ht 152.4 cm; Wt 44.5 kg
[~2019-02-28 11:59] MED LIST changes: -ATIV1TAB7 PO; -ENSU1LIQ36 PO; -HYOS125TA PO; -LEVO75TA4 PO; -LORA0.5T11 PO; -MELATAB3 PO; -MOBI10CR TOP; -MORP20SO3 PO; -Morphine Sulfate Oral Conc. SL; -QUET1TAB8 PO; -SCOP1PAT2 TOP; -SENN1TAB41 PO; -SERT-141 PO; -SERT25TA21 PO
--- NOTE | 2019-02-28 12:46 | REP ---
Clinical: Preoperative assessment . Comparison: 11/10/2018 . Findings: The mediastinum and cardiac silhouette are stable and within normal limits for portable technique. The lung biggs demonstrate chronic interstitial changes without acute consolidation, effusion, or pneumothorax. Skeletal structures are intact. Impression: No acute cardiopulmonary process appreciated. Electronically Signed by Jean Schwartz MD 02/28/2019 12:37 P
[2019-02-28] MEDS ORDERED: SENN1TAB41 PO (12:47)
[2019-02-28] MEDS ORDERED: SERT-141 PO (12:47)
[2019-02-28] MEDS ORDERED: SERT25TA21 PO (12:47)
[2019-02-28] MEDS ORDERED: QUET5TAB PO (12:47)
[2019-02-28] MEDS ORDERED: QUET1TAB8 PO (12:47)
[2019-02-28] MEDS ORDERED: ENSU1LIQ36 PO (12:47)
[2019-02-28] MEDS ORDERED: MOBI10CR TOP (12:47)
[2019-02-28] MEDS ORDERED: MELATAB3 PO (12:47)
[2019-02-28] MEDS ORDERED: LEVO75TA4 PO (12:47)
[2019-02-28 13:25] LABS: BASO % 0.4 % (0.0-1.0); HEMATOCRIT 36.8 % (36.0-47.0); HEMOGLOBIN 12.1 g/dl (12.0-15.5); LYMPH # 0.8 10^3/uL (1.5-5.0); MEAN CORPUSCULAR HEMOGLOBIN 31.8 pg (27.0-33.0); MEAN CORPUSCULAR HGB CONC 32.9 g/dl (32.0-36.5); MEAN CORPUSCULAR VOLUME 96.8 fl (80.0-96.0); MONO # 0.9 10^3/uL (0.0-0.8); MONO % 8.8 % (0.0-5.0); NEUTROPHILS # 8.4 10^3/uL (1.5-8.5); NEUTROPHILS % 82.3 % (36.0-66.0); PLATELET COUNT, AUTOMATED 235 10^3/uL (150-450); WHITE BLOOD COUNT 10.1 10^3/uL (4.0-10.0)
[2019-02-28 13:42] LABS: INR 1.13; PROTHROMBIN TIME 14.2 SECONDS (11.8-14.0)
[2019-02-28 13:43] LABS: PARTIAL THROMBOPLASTIN TIME 27.6 SECONDS (25.0-38.4)
[2019-02-28] MEDS ORDERED: traMADol 50 MG TAB PO PRN (13:45)
[2019-02-28 13:50] LABS: BLOOD UREA NITROGEN 16 MG/DL (7-18); CALCIUM LEVEL 8.5 MG/DL (8.8-10.2); CARBON DIOXIDE LEVEL 30 MEQ/L (21-32); CHLORIDE LEVEL 108 MEQ/L (98-107); CK-MB VALUE MASS 6.2 NG/ML (<3.6); CPK CREATINE PHOSPHOKINASE 382 U/L (26-192); CREATININE FOR GFR 0.96 MG/DL (0.55-1.30); GLOMERULAR FILTRATION RATE 59.2 (>32); GLUCOSE, FASTING 111 MG/DL (70-100); MB/CK RELATIVE INDEX 1.62 (< OR =4); POTASSIUM SERUM 3.6 MEQ/L (3.5-5.1); SODIUM LEVEL 143 MEQ/L (136-145); TROPONIN I < 0.02 NG/ML (< 0.10)
--- NOTE | 2019-02-28 13:52 | REP ---
CT BRAIN WITHOUT CONTRAST: HISTORY: Trauma. Comparison CT study October 16, 2018, October 26, 2017, and January 22, 2015. 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 Bone window settings demonstrate an intact bony calvarium. No skull fracture is appreciated. There is mild soft tissue scalp swelling on the left posteriorly. No teodoro hematoma is appreciated. Visualized paranasal sinuses are clear. No intraorbital abnormality is seen. The previous study from October 16, 2018 showed bilateral chronic subdural hygromas. These have decreased in size in the interval since the prior study. No acute subdural or epidural hematoma is seen. No parenchymal hemorrhage is appreciated. There are some dural calcifications along the falx again noted unchanged. There is generalized atrophy. IMPRESSION: Generalized volume loss. No acute intracranial abnormality. Previously noted bilateral chronic subdural hygromas have improved in size. Electronically Signed by Tad Doll MD 02/28/2019 02:20 P
[2019-02-28] MEDS ORDERED: SCOPOLAMINE 1MG TRANSDERMAL PATCH TOP PRN (14:00)
[2019-02-28] MEDS ORDERED: MORPHINE 2 MG/ML 1ML VIAL (J2270) IV SCH (14:00)
[2019-02-28] MEDS ORDERED: LORA0.5T11 PO (14:04)
[2019-02-28] MEDS ORDERED: HYOS125TA PO (14:04)
[2019-02-28] MEDS ORDERED: MORP20SO3 PO (14:04)
[2019-02-28] MEDS ORDERED: SCOP1PAT2 TOP (14:04)
[2019-02-28] MEDS ORDERED: MORPHINE 10MG/0.5ML ORAL CONCENTRATE SOLUTION U/D SL PRN (14:15)
[2019-02-28] MEDS ORDERED: LORazepam 1 MG TAB PO PRN (14:15)
[2019-02-28] MEDS ORDERED: ATIV1TAB7 PO (16:09)
[2019-02-28] MEDS ORDERED: Morphine Sulfate Oral Conc. SL (16:09)
[2019-02-28 16:10] VITALS: BP 153/88
[2019-02-28] MEDS ORDERED: MORPHINE 2 MG/ML 1ML VIAL (J2270) IV ONE (16:15)
[2019-02-28] MEDS ORDERED: ACETAMINOPHEN 500 MG TAB PO SCH (21:00)
--- NOTE | 2019-02-28 21:23 | HPE ---
DATE OF ADMISSION: 02/28/2019 CHIEF COMPLAINT: Fall. HISTORY OF PRESENTING ILLNESS: This is an 83-year-old [facility] resident in dementia unit, unable to provide history, at the bedside, states that he [facility] not [facility] since he does not understand what she says and she does not know whether he comes or not. [facility], about four times the past few weeks, now sustaining a right hip fracture. According to the , who has been to the patient for the past 61 years, she is DO NOT RESUSCITATE/DO NOT INTUBATE and would not want to carry on with her present condition. The , who is the health care proxy, along with the patient's son, have both decided to make the patient comfort measures only and to not proceed with any surgical intervention. The patient's , and health care proxy, want her to be comfortable and is requesting intravenous morphine if possible and transfer back to [facility] once her pain is controlled. The patient is demented and could not provide any history. is not aware of any prodromal symptoms prior to the fall. PAST MEDICAL HISTORY: Emphysema, chronic obstructive pulmonary disease (COPD), hyperlipidemia, hypothyroidism, systemic sclerosis, osteoporosis, asthma, syncope, dementia, Alzheimer's type, behavioral and psychological symptoms of dementia, peripheral artery disease, onychomycosis. PAST SURGICAL HISTORY: Cholecystectomy 1991, tonsillectomy. FAMILY HISTORY: Noncontributory due to advanced age. SOCIAL HISTORY: Nonsmoker. DO NOT RESUSCITATE/DO NOT INTUBATE. Has been for 61 years, is the health care proxy. is currently wanting comfort measures only. HOME MEDICATIONS: - acetaminophen 650 every 4 hours as needed - aspirin 81 daily - bisacodyl 10 mg per rectum daily - Lasix 20 mg three times a week - hyoscyamine 0.125 as needed every 4 hours - levothyroxine 75 mcg nightly - milk of magnesium 10 mL daily as needed - quetiapine 50 mg every evening, 100 mg daily - Senokot-S two tablets daily - sertraline 25 daily and 50 mg daily - Fleet enema as needed daily ALLERGIES: No known drug allergies. FAMILY HISTORY: Noncontributory due to age. PHYSICAL EXAMINATION: Temperature 98.7, pulse 88, respiratory rate 20, blood pressure 138/63, 94% on room air. Generally: Patient is not awake and she mumbles. Has purposeful movement. Appears older than her stated age. Disoriented to place and time. Not cooperative, nonresponsive. No cervical lymphadenopathy. No thyromegaly. Lungs: Clear to auscultation, no wheezing, rales, or rhonchi. Heart: S1, S2, sinus. Abdomen: Soft, nontender, nondistended. Positive bowel sounds. Extremities: No pitting edema. Patient is lying in position. Right hip is tender, unable to move. Garcia catheter in place. LABORATORY DATA: White count 10, hemoglobin 12, hematocrit 36, platelet count 235. Sodium 143, potassium 3.6, chloride 108, bicarbonate 30, BUN 16, creatinine 0.96, glucose 111, calcium 8.5, total CK 380, MB fraction 6.2, troponin less than 0.02, INR 1.13, PTT 27.6, PT 14.2. Urinalysis cloudy, 1+ glucose, negative nitrites, 2+ leukocyte esterase, 1 RBC, 28 WBC, negative bacteria. Urine culture is pending. CT of the head 02/28/2019, generalized volume loss. No acute intracranial abnormality. Previously noted bilateral chronic subdural hygromas have improved in size. Pelvis x-ray, femoral neck fracture on the right with superior displacement and some impaction. ASSESSMENT AND PLAN: 83-year-old DO NOT RESUSCITATE/DO NOT INTUBATE with advanced Alzheimer's dementia and behavioral issues at [facility] dementia unit had been having recurrent falls times four, now sustaining a right femoral neck fracture on the right with superior displacement and impaction. Patient will be admitted for pain control. Patient's family have decided not to pursue surgical management. 1. Femoral neck fracture on the right with severe displacement and impaction: Comfort measures only per the . Patient's health care proxy is requesting IV medications scheduled as the patient is severely demented, would not understand questions and most often will not ask for pain medications, "after being for 61 years, I would be happy if she was comfortable and not suffering." Patient's has spoken with the patient's son and both are in agreement to not pursue any medical or surgical treatment, but to keep the patient comfortable. She is currently comfort measures only. Ativan as needed for anxiety and agitation, Roxanol every 2 hours as needed. Per the 's request, intravenous morphine scheduled as the patient is very demented, will not ask for pain medications. 2. CODE STATUS: DO NOT RESUSCITATE/DO NOT INTUBATE, comfort measures only. DISPOSITION: Transfer to [facility]. Do not send back to the hospital. Comfort measures only and pain medications. MTDD
--- NOTE | 2019-03-01 08:48 | ECGEPIP ---
[facility] - ED Test Date: 2019-02-28 Pat Name: BUTCH VILLELA Department: Room: [place] [address] Gender: Female Digital Account Manager: CHARISSA : [id number] Requested By: Shreya Caicedo Order Number: [id number] Reading MD: Wilian Blas Measurements Intervals [place] Rate: 80 P: 62 NM: 125 QRS: 65 QRSD: 83 T: 68 QT: 311 QTc: 359 Interpretive Statements SINUS RHYTHM NONSPECIFIC T-WAVE ABNORMALITY BASELINE ARTIFACT AFFECTS INTERPRETATION RATE CHANGE COMPARED TO 10/16/18 Electronically Signed on 03-01-2019 8:48:27 EST by Wilian Blas
--- NOTE | 2019-03-01 10:26 | ER ---
DATE OF CONSULTATION: 02/28/2019 CHIEF COMPLAINT: Right hip pain. HISTORY OF PRESENT ILLNESS: This is a pleasantly demented 83-year-old female from [facility] in the dementia unit. She is unable to provide a history and it is taken by the who is at bedside. Per the , the patient suffered a witnessed fall and was immediately unable to ambulate. She complained of pain to the right hip. Prior to the fall, the patient was able to ambulate around the hallways on her own and has reasonable mobility. Of note, the patient also has a DO NOT RESUSCITATE and DO NOT INTUBATE order. The is the healthcare proxy. The patient's , along with their son, wished to make the patient comfort measures only and to avoid any surgical intervention. REVIEW OF SYSTEMS: Unable to be completed due to the patient's current mental state. PAST MEDICAL HISTORY: 1. Emphysema. 2. Chronic obstructive pulmonary disease (COPD). 3. Hyperlipidemia. 4. Hypothyroidism. 5. Systemic sclerosis. 6. Osteoporosis. 7. Asthma. 8. Syncope. 9. Dementia, Alzheimer's. 10. Peripheral artery disease. PAST SURGICAL HISTORY: 1. Cholecystectomy in 1991. 2. Tonsillectomy. SOCIAL HISTORY: DO NOT RESUSCITATE, DO NOT INTUBATE, nonsmoker. for 61 years. Currently a resident at [facility]. HOME MEDICATIONS: - Tylenol - aspirin - bisacodyl - Lasix - hyoscyamine - levothyroxine - quetiapine - sertraline ALLERGIES: No known drug allergies. PHYSICAL EXAMINATION: The patient is awake but not alert or oriented. Breathing is unlabored on room air. Normocephalic, atraumatic. Right lower extremity, positive log roll. Unable to get detailed motor sensory examination. Moving the feet spontaneously. Posterior and tibialis pulse regular rate. Left lower extremity with no tenderness to palpation, negative log roll. Unable to get detailed motor sensory examination. Skin is intact. Feet are warm and well perfused. Posterior tibial pulse regular rate. Both upper extremities with no tenderness to palpation. Full range of motion, moving spontaneously. Radial pulse 2+ and regular rate. IMAGING: Reviewed. The right hip demonstrated a femoral neck fracture that is displaced. DIAGNOSIS: Right femoral neck fracture, displaced. PLAN: I discussed with the that there is no wrong answer in this situation. We generally do recommend surgical intervention as this is a comfort care measure in itself, providing pain relief and also increasing her ambulation and mobility. If we choose nonoperative measures, we are basically making her bed rest for the foreseeable future, at which point she will likely decline otherwise. Due to the patient's current state and the patient's previous wishes, they have decided to pursue no surgical treatment, nonoperative treatment. Therefore, the patient will be taken back to [facility] and has no need to followup with me. This is entirely reasonable given the situation and I am in agreement with this plan.
--- NOTE | 2019-03-03 22:23 | DSES ---
DATE OF ADMISSION: 02/28/2019 DATE OF DISCHARGE: Patient was sent back to [facility] as conformationally DO NOT RESUSCITATE, DO NOT INTUBATE, do not send to the hospital, per the patient's prior wishes, healthcare proxy, and patient's son. DISCHARGE DIAGNOSES: 1. Mechanical fall. 2. Femoral neck fracture on the right with severe displacement and impaction. 3. Advanced Alzheimer's dementia. 4. History of emphysema and chronic obstructive pulmonary disease. 5. Dyslipidemia. 6. Hypothyroidism. 7. Systemic sclerosis. 8. Osteoporosis. 9. Asthma. 10. Peripheral arterial disease. 11. Behavioral and psychological symptoms of dementia. DISCHARGE MEDICATIONS: - Ativan 1 mg every 4 hours - Roxanol 5 mg sublingually every 2 hours - hyoscyamine sulfate 0.125 mg every 4 hours as needed for terminal secretions - scopolamine patch every 3 days as needed for excessive secretions HOSPITAL COURSE: This is an 83-year-old DO NOT RESUSCITATE, DO NOT INTUBATE female who presented to the emergency room, brought in by ambulance, after a fall at the [facility]ci at [facility], where she resides in a dementia unit. According to the , who has been to her for the past 61 years, "This is not how she would want to live." Patient had been falling multiple times at the [facility], this being the fourth time, and now with a right hip fracture noted on the x-ray. Patient does not recognize the anymore. The does not visit often, as he often does not know what she is saying and usually mumbles to herself and does not respond to him anymore. In the emergency room, patient was evaluated by orthopedic surgery, Dr. Negron. Patient's had consulted with his son, and, according to mother's prior wishes, she would not want to live in the his manner in the future, and they have opted to make her comfort measures only and not to proceed with any surgical intervention. Therefore, per the 's request, patient was admitted for intravenous morphine, as he thinks if she should be given more pain control, as she would not be able to speak and tell the nurses if she was in pain or to call for help. He wanted her to be comfortable and without any suffering and did not want any oral medications given on a as-needed basis and preferred to have intravenous pain medications given routinely as scheduled despite the risk of respiratory depression, as "I don't want her to suffer." Per nursing, since the patient is a [facility] resident, it would be best if she did not have to stay overnight at the hospital and to just return straight to the [facility]. The emergency room nursing printing and stamping supervisor contacted the [facility] nurse practitioner and agreed that the patient can be transferred straight from the emergency room and did not require hospitalization. Patient was made comfort measures only. Was given Roxanol, Ativan, scopolamine for comfort measures. Patient's was in agreement that the patient should be transferred back to [facility]. No orthopedic intervention was performed during this admission. She was discharged back to the [facility]ci. LABORATORIES ON DISCHARGE: White count 10, hemoglobin 12, hematocrit 36, platelets 235. Sodium 143, potassium 3.6, chloride 108, bicarbonate 30, BUN 16, creatinine 0.96, glucose 111, calcium 8.5. Total CK 382, MB fraction 6.2, troponin less than 0.02. Urine culture is pending. Urinalysis: Cloudy urine, 1+ glucose. Negative nitrite, bilirubin, 2+ leukocyte esterase, 28 WBC, 1 RBC. Negative bacteremia. Small amount of mucus. CT of the head February 28: Generalized volume loss. No acute intracranial abnormality. Previously noted bilateral chronic subdural hygromas have improved in size. February 28 chest x-ray shows no acute cardiopulmonary process appreciated. February 28 hip and pelvic x-ray: There is an impacted, somewhat displaced fracture through the neck of the right femur, which is new from the 10/22/2018 prior study. No pelvic or left hip fracture is seen. No sacral fractures noted. [facility]
== END 2019-02-28 16:34 | DRG 536 ==
LOC: M ED 11:59 → M ED INP 13:38
PROVIDERS: ADMIT General Practice; ATTEND General Practice
DX: S72.001A Fracture of unspecified part of neck of right femur, initial encounter for closed fracture (principal); Z66 Do not resuscitate; J45.909 Unspecified asthma, uncomplicated; M81.0 Age-related osteoporosis without current pathological fracture; E03.9 Hypothyroidism, unspecified; E78.5 Hyperlipidemia, unspecified; F02.80 Dementia in other diseases classified elsewhere, unspecified severity, without behavioral disturbance, psychotic disturbance, mood disturbance, and anxiety; G30.9 Alzheimer's disease, unspecified; W18.30XA Fall on same level, unspecified, initial encounter; Y92.128 Other place in nursing home as the place of occurrence of the external cause; R29.6 Repeated falls; Z79.899 Other long term (current) drug therapy; Z79.82 Long term (current) use of aspirin; Z51.5 Encounter for palliative care; I73.9 Peripheral vascular disease, unspecified

== ENCOUNTER → 2019-02-28 | Outpatient (REF) | payer MEDICARE ==
[~2019-02-28] MED LIST changes: +LORA0.5T11 PO; -LORA0.5T5 PO
--- NOTE | 2019-02-28 11:58 | REP ---
Of the pelvis right hip: Four views. History: Hip pain. Comparison study: The October 20, 2018. Findings: There is a impacted, somewhat displaced fracture through the the neck of the right femur which is new from the October 22, 2018 prior study. No pelvic or left hip fracture is seen. No sacral fractures noted. Impression: Femoral neck fracture on the right with superior displacement and some impaction. Electronically Signed by Tad Doll MD 02/28/2019 11:50 A
== END ==
LOC: SKLAB6 12:00
PROVIDERS: ATTEND Internal Medicine
DX: S72.001A Fracture of unspecified part of neck of right femur, initial encounter for closed fracture (principal); W19.XXXA Unspecified fall, initial encounter; Y92.9 Unspecified place or not applicable; M25.551 Pain in right hip